=== PATIENT | male | born 1950 ===

== ENCOUNTER 2024-09-25 11:18 | Outpatient (AMB) | payer MEDICARE, SELFPAY ==
--- NOTE | 2024-09-25 11:36 | MHC.OFFWIV ---
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 Patient had a cyst removed from his upper back on September 04, 2024 and was told to have sutures removed 2 weeks later. Patient states he has been changing his bandage daily and has no concerns about the site of his sutures. [facility] Social History Patient Tobacco Use Status: Never used Tobacco Review of Systems Const All systems reviewed & are unremarkable except as noted in HPI and below Skin/Breast Reports system reviewed and no additional complaints, except as documented and Reports new lesions (Cyst removal September 04, upper back) Neuro Reports no additional complaints Endo Reports no additional complaints Physical Exam Const General: cooperative, healthy appearing, comfortable, no acute distress, well developed, alert, awake and Physically active Nutritional Appearance: average body habitus Orientation/consciousness: patient oriented x3 Limitations: no limitations and other limitations (Mildly tremulous) Skin Other: Two sutures intact upper back; no surrounding erythema, edema or exudates, non.tender to direct examination. Third suture not identified. Neuro General: patient oriented x3 Psych Appearance: grossly normal Mental Status: mental status grossly normal Insight: Good insight present (Psych) Judgement: Good judgement present (Psych) Assessment & Plan Assessment & Plan (1) Encounter for removal of sutures: Comment: Two sutures removed; bacitracin placed, bandage provided. Code(s): Z48.02 - Encounter for removal of sutures Plan: Patient is instructed to keep lesions clean with soap and water daily and apply antibiotic ointment twice daily for the next 5-7 days. Patient will follow up with his surgeon upon return to [place]. Coding Level of Care Code Est Pt Level 3 (97811) Diagnoses Encounter for removal of sutures Z48.02 Time Spent (min) 20
[2024-09-25 11:52] VITALS: BP 118/74; PULSE 72; O2SAT 96
== END 2024-09-25 12:34 | disposition home or self-care (01) ==
PROVIDERS: Visit Provider Physician Assistant
DX: Z48.02 Encounter for removal of sutures (principal)

== ENCOUNTER → 2024-09-25 11:18 | Outpatient (BNVA) | payer MEDICARE, BC, SELFPAY | PROVIDERS: Visit Provider Physician Assistant | DX: Z48.02 Encounter for removal of sutures (principal) | CPT/HCPCS: 99212 ==